=== PATIENT | male | born 1950 | race African-American/Black ===

== ENCOUNTER 2019-01-25 09:02 | Outpatient (CLI) | payer MEDICARE ==
--- NOTE | 2019-01-25 14:04 | MRI ---
MRI neck soft tissues with contrast: DATE: 01/25/2019 HISTORY: 68-year-old male with neck mass ICD-10: R 22.1 Dr. Sawrtz discussed the findings and interpretation by telephone with Dr. Moshe Gloria at 1:50 PM on 03/27/2018 COMPARISON: None available FINDINGS: At the upper portion of the right retropharyngeal space, extending from the C1 level down to the uppe r C3 level, there is a large, approximately 3.5 x 2 x 5 cm mass which is T1 isointense relative to muscle signal, very T2 hyperintense, has rim enhancement, and internal septations. Small patchy regio ns of internal enhancement. This is suspected to represent a large, necrotic, cystic right retropharyngeal lymph node. There is an another large mass located inferior to the right angle of the mandible, measuring approxi mately 3.5 x 3 x 2.5 cm mass with very similar signal characteristics and pattern of enhancement, probably representing a large, necrotic, cystic right level 2 jugulodigastric lymph node. Abutting th is, there are other large, nonnecrotic right level 2 lymph nodes. Inferior to this, there is a vertically arranged array of mildly enlarged right level 3 and level 5 l ymph nodes. There is asymmetric thickening of the lymphoid tissues at the right glossopharyngeal sulcus compared to the left. Uncertain whether or not this represents the primary neoplasm source. Because of motion artifact, the image resolution is not good enough to evaluate for the primary neopl astic tumor source, and evaluation of the larynx is especially poor. CT of the neck with contrast would be better for this. IMPRESSION: 1. Evidence for large, cystic, necrotic right jugulodigastric and right level 2 cervical lymph nodes. In a patient of age of 68 years, this strongly raises the possibility of malignant neoplasm such as squamous cell carcinoma. 2. Additional, smaller, nonnecrotic right sided cervical lymphadenopathy.
== END 2019-01-25 09:03 | disposition home or self-care (01) ==
LOC: SCSMRI 09:02
PROVIDERS: ATTEND Otolaryngology Plastic Surgery within the Head & Neck
DX: R22.1 Localized swelling, mass and lump, neck (principal); R59.1 Generalized enlarged lymph nodes
CPT/HCPCS: 70543; 82565

== ENCOUNTER 2019-02-03 11:48 | Day surgery (SDC) | payer MEDICARE ==
[2019-02-02 10:45] VITALS: BMI 32.3
[~2019-02-03 11:48] MED LIST: Dexamethasone 20 MG/5 ML VIAL ONE; Lidocaine 1% PF 5 ML VIAL ONE; Ondansetron PF 4 MG/2 ML Vial ONE; PROPOFOL 200 MG/20 ML VIAL ONE
[2019-02-03] MEDS ORDERED: Fentanyl 100 MCG/2 ML VIAL ONE ×2 (13:21→14:44)
[2019-02-03] MEDS ORDERED: EPINEPHrine 1 MG/ML AMP ONE (13:22)
[2019-02-03 13:52] LABS: Hemoglobin 12.9 g/dL (14.0-18.0)
[2019-02-03] MEDS ORDERED: Ferric Subsulfate (ASTRINGYN) 8 ML VIAL ONE (14:14)
[2019-02-03 14:15] LABS: Anion Gap 15 mmol/L (10-20); BUN (Urea Nitrogen) 17 mg/dL (8.4-25.7); Calc. Creatinine Clearance 90 mL/min (70-130); Calcium 9.5 mg/dL (7.8-10.44); Carbon Dioxide 23 mmol/L (23-31); Chloride 104 mmol/L (98-107); Estimated GFR-MDRD 77; Glucose 97 mg/dL (80-115); Potassium 4.2 mmol/L (3.5-5.1); Sodium 138 mmol/L (136-145)
[2019-02-03] MEDS ORDERED: HYDROcodone/Acetaminophen 5/325 mg Tablet ONE (15:00)
--- NOTE | 2019-02-04 09:25 | OP ---
DATE OF PROCEDURE: 02/03/2019 PREOPERATIVE DIAGNOSES: 1. Right tonsil mass. 2. Right neck mass. POSTOPERATIVE DIAGNOSES: 1. Right tonsil mass. 2. Right neck mass. PROCEDURES PERFORMED: 1. Right tonsillectomy. 2. Direct laryngoscopy without biopsy. ESTIMATED BLOOD LOSS: 0 mL. COMPLICATIONS: None. ANESTHESIA: GETA. DESCRIPTION OF PROCEDURE: The patient was taken to the operating room and placed supine on the table. General endotracheal anesthesia was obtained by the Anesthesia Staff. Following this, the Dedo laryngoscope was used to examine the oral cavity, oropharynx, and laryngeal structures. All of the laryngeal structures were all noted to be within normal limits and abnormalities were a very firm mass within the right tonsil. A curved Allis clamp was then used to grasp the right tonsil and a Bovie electrocautery was used to perform a subcapsular tonsillectomy. Hemostasis was obtained using the suction Bovie device. Oral cavity was irrigated. The patient tolerated the procedure well. Job ID: [id number]
== END 2019-02-03 16:24 | disposition home or self-care (01) ==
LOC: SDC 11:48
PROVIDERS: ATTEND Otolaryngology Plastic Surgery within the Head & Neck
PROC: 0CTPXZZ Resection of Tonsils, External Approach (ICD-10-PCS; principal; 2019-02-03)
PROC: 0CJS8ZZ Inspection of Larynx, Via Natural or Artificial Opening Endoscopic (ICD-10-PCS; 2019-02-03)
DX: C09.9 Malignant neoplasm of tonsil, unspecified (principal); R22.1 Localized swelling, mass and lump, neck; I10 Essential (primary) hypertension; E11.9 Type 2 diabetes mellitus without complications; E78.5 Hyperlipidemia, unspecified; F17.200 Nicotine dependence, unspecified, uncomplicated; F32.9 Major depressive disorder, single episode, unspecified; G47.30 Sleep apnea, unspecified; J40 Bronchitis, not specified as acute or chronic; Z79.84 Long term (current) use of oral hypoglycemic drugs; Z79.899 Other long term (current) drug therapy; Z99.89 Dependence on other enabling machines and devices
CPT/HCPCS: 80048; 85014; 85018; 88304; 88341; 88342; 93005; 93010; J0171; J1100; J2001; J2405; J2704; J3010